=== PATIENT | male | born 1995 | race Caucasian/White ===

== ENCOUNTER 2017-12-22 09:45 | Inpatient (IN) | payer MEDICAID, OTHER ==
[~2017-12-22] VITALS: Ht 172.7 cm; Wt 65.1 kg
[2017-12-22] MEDS: SODIUM CHLORIDE 0.9% 1,000 ML IV SCH ×2 (13:20→22:08)
[2017-12-22] MEDS: NICOTINE 7 MG/24 HR PATCH.TD24 TD SCH (13:24)
[2017-12-22 13:25] VITALS: BP 136/81
[2017-12-22] MEDS ORDERED: ENALAPRILAT 1.25 MG/ML, 2ML IVPush PRN (13:30)
[2017-12-22] MEDS ORDERED: BISACODYL 10 MG SUPP PR PRN (13:30)
[2017-12-22] MEDS ORDERED: ONDANSETRON 2MG/ML, 2ML IVPush PRN (13:30)
[2017-12-22] MEDS ORDERED: LABETALOL 5MG/ML, 20ML IVPush PRN (13:30)
[2017-12-22] MEDS ORDERED: DOCUSATE 100 MG CAPSULE PO PRN (13:30)
[2017-12-22 13:46] LABS: BASOPHILS # (AUTO) 0.03 x10^3/uL (0-0.1); BASOPHILS % (AUTO) 0 % (0-1); EOSINOPHILS # (AUTO) 0.26 x10^3/uL (0-0.4); EOSINOPHILS % (AUTO) 2 % (1-7); LYMPHOCYTES # (AUTO) 1.39 x10^3/uL (1-3.4); LYMPHOCYTES % (AUTO) 11 % (22-44); MD NO; MEAN CORPUSCULAR HEMOGLOBIN 32.3 pg (27.5-34.5); MEAN CORPUSCULAR HGB CONC 34.3 g/dL (33.2-36.2); MEAN CORPUSCULAR VOLUME 94.2 fL (81-97); MONOCYTES # (AUTO) 0.77 x10^3/uL (0.2-0.8); MONOCYTES % (AUTO) 6 % (2-9); NEUTROPHILS # (AUTO) 10.46 x10^3/uL (1.8-6.8); NEUTROPHILS % (AUTO) 81 % (42-75); PLATELET COUNT 211 x10^3/uL (130-400); RED BLOOD COUNT 4.69 x10^6/uL (4.38-5.82); RED CELL DISTRIBUTION WIDTH 13.6 % (9.4-14.8)
[2017-12-22 13:56] LABS: ALANINE AMINOTRANSFERASE 20 U/L (12-78); ANION GAP 9 mmol/L (5-15); CALCIUM 8.7 mg/dL (8.5-10.1); CHLORIDE 110 mmol/L (98-107); CREATININE 0.81 mg/dL (0.7-1.3)
[2017-12-22 13:58] LABS: ALKALINE PHOSPHATASE 84 U/L (45-117); BILIRUBIN,TOTAL 0.7 mg/dL (0.2-1.0); TOTAL PROTEIN 7.3 g/dL (6.4-8.2)
[2017-12-22 15:03] VITALS: BP 136/81
[2017-12-22] MEDS: KETOROLAC 30 MG/1 ML IV PRN ×2 (15:50→22:05)
[2017-12-22] MEDS: morphine SULFATE 10 MG/ML, 1ML IVPush PRN (20:17)
[2017-12-22 21:00] VITALS: BP 127/78
[2017-12-23 01:32] VITALS: BP 130/75
[2017-12-23] MEDS: KETOROLAC 30 MG/1 ML IV PRN (04:39)
[2017-12-23 05:18] LABS: BASOPHILS # (AUTO) 0.05 x10^3/uL (0-0.1); BASOPHILS % (AUTO) 0 % (0-1); EOSINOPHILS # (AUTO) 0.68 x10^3/uL (0-0.4); EOSINOPHILS % (AUTO) 6 % (1-7); LYMPHOCYTES # (AUTO) 1.92 x10^3/uL (1-3.4); LYMPHOCYTES % (AUTO) 17 % (22-44); MD NO; MEAN CORPUSCULAR HEMOGLOBIN 32.1 pg (27.5-34.5); MEAN CORPUSCULAR HGB CONC 34.1 g/dL (33.2-36.2); MEAN CORPUSCULAR VOLUME 94.1 fL (81-97); MEAN PLATELET VOLUME 10.5 fL (7.4-10.4); MONOCYTES # (AUTO) 1.03 x10^3/uL (0.2-0.8); MONOCYTES % (AUTO) 9 % (2-9); NEUTROPHILS # (AUTO) 7.77 x10^3/uL (1.8-6.8); NEUTROPHILS % (AUTO) 68 % (42-75); PLATELET COUNT 182 x10^3/uL (130-400); RED BLOOD COUNT 4.36 x10^6/uL (4.38-5.82); RED CELL DISTRIBUTION WIDTH 13.4 % (9.4-14.8)
[2017-12-23 05:32] LABS: CHLORIDE 111 mmol/L (98-107)
[2017-12-23 05:40] LABS: ALANINE AMINOTRANSFERASE 17 U/L (12-78); ALBUMIN 3.2 g/dL (3.4-5.0); ALKALINE PHOSPHATASE 75 U/L (45-117); ANION GAP 8 mmol/L (5-15); BILIRUBIN,TOTAL 0.7 mg/dL (0.2-1.0); CALCIUM 8.8 mg/dL (8.5-10.1); CREATININE 0.83 mg/dL (0.7-1.3); TOTAL PROTEIN 6.3 g/dL (6.4-8.2)
[2017-12-23 06:37] VITALS: BP 132/87
[2017-12-23] MEDS: morphine SULFATE 10 MG/ML, 1ML IVPush PRN (07:31)
[2017-12-23] MEDS: SODIUM CHLORIDE 0.9% 1,000 ML IV SCH ×2 (07:32→23:45)
[2017-12-23] MEDS: SENNA/DOCUSATE TABLET PO SCH (08:27)
[2017-12-23] MEDS ORDERED: OXYMETAZOLINE NASAL SPRAY 0.05%, 15ML ONE (11:13)
[2017-12-23] MEDS ORDERED: BALANCED SALT OPHTH IRRIG SOLN 18ML ONE (11:13)
[2017-12-23] MEDS ORDERED: LIDOCAINE 1%-EPI 1:100K, 30ML ONE (11:13)
[2017-12-23] MEDS ORDERED: NEO/BACI/POLY/HC OINT 15GM ONE (12:11)
[2017-12-23] MEDS ORDERED: CHLORHEXIDINE 15 ML UDC ONE (12:11)
[2017-12-23] MEDS ORDERED: CEFTRIAXONE PMX 1GM/50ML 50 ML IV SCH (13:00)
[2017-12-23] MEDS ORDERED: MIDAZOLAM 1 MG/ML, 2ML ONE (13:04)
[2017-12-23] MEDS ORDERED: FENTANYL PF 250 MCG/5ML ONE (13:04)
[2017-12-23] MEDS ORDERED: SUCCINYLCHOLINE 20 MG/ML, 10ML ONE (13:05)
[2017-12-23] MEDS ORDERED: ROCURONIUM 10 MG/ML,10ML ONE (13:05)
[2017-12-23] MEDS ORDERED: DEXAMETHASONE 4 MG/ML, 5ML ONE (13:05)
[2017-12-23] MEDS ORDERED: PROPOFOL 10 MG/ML, 20ML ONE (13:05)
[2017-12-23] MEDS ORDERED: CEFAZOLIN 1,000 MG ONE (13:05)
[2017-12-23] MEDS ORDERED: MEPERIDINE/PF 25MG/0.5ML IVPush PRN (14:00)
[2017-12-23] MEDS ORDERED: ONDANSETRON 2MG/ML, 2ML IV PRN (14:00)
[2017-12-23] MEDS ORDERED: HALOPERIDOL 5 MG/ML IV PRN (14:00)
[2017-12-23] MEDS ORDERED: LORazepam 2 MG/ML, 1ML IVPush PRN (14:00)
[2017-12-23] MEDS ORDERED: ONDANSETRON ODT 8 MG PO PRN (14:00)
[2017-12-23] MEDS ORDERED: ALBUTEROL SULFATE 2.5 MG/3 ML NPPB PRN (14:00)
[2017-12-23] MEDS ORDERED: hydrALAzine 20 MG/ML, 1ML IV PRN (14:00)
[2017-12-23] MEDS ORDERED: LABETALOL 5MG/ML, 20ML IV PRN (14:00)
[2017-12-23] MEDS ORDERED: MIDAZOLAM 1 MG/ML, 2ML IV PRN (14:00)
[2017-12-23] MEDS ORDERED: MORPHINE SULFATE 4 MG/ML, 1ML IVPush PRN (14:00)
[2017-12-23] MEDS ORDERED: PROMETHAZINE 12.5 MG SUPP PR PRN (14:00)
[2017-12-23] MEDS ORDERED: EPHEDRINE 50 MG/ML, 1ML IVPush PRN (14:00)
[2017-12-23] MEDS ORDERED: PROMETHAZINE 25 MG/ML, 1ML IV PRN (14:00)
[2017-12-23] MEDS ORDERED: KETOROLAC 30 MG/1 ML ONE (14:36)
[2017-12-23] MEDS ORDERED: ONDANSETRON 2MG/ML, 2ML ONE (14:36)
[2017-12-23] MEDS ORDERED: FENTANYL PF 100 MCG/2ML ONE (15:21)
[2017-12-23] MEDS: FENTANYL PF 100 MCG/2ML IV PRN ×2 (15:24→15:31)
[2017-12-23] MEDS ORDERED: OXYcodone 5 MG/5 ML ORAL.SOL UDC ONE ×2 (15:26→15:57)
[2017-12-23] MEDS: OXYcodone 5 MG/5 ML ORAL.SOL UDC PO PRN ×3 (15:27→22:13)
[2017-12-23] MEDS ORDERED: HYDROmorphone 2 MG/ML, 1ML ONE (15:35)
[2017-12-23] MEDS: HYDROmorphone 1 MG/ML, 1ML IV PRN ×3 (15:38→15:55)
[2017-12-23] MEDS ORDERED: HALOPERIDOL 5 MG/ML ONE (16:03)
[2017-12-23] MEDS ORDERED: MEPERIDINE/PF 50 MG/ML ONE (16:09)
[2017-12-23] MEDS: NICOTINE 7 MG/24 HR PATCH.TD24 TD SCH (17:20)
[2017-12-23 20:18] VITALS: BP 123/67
[2017-12-23 23:56] VITALS: BP 122/81
[2017-12-24] MEDS: OXYcodone 5 MG/5 ML ORAL.SOL UDC PO PRN (03:48)
[2017-12-24 03:57] VITALS: BP 122/71
[2017-12-24 07:00] VITALS: BP 127/74
[2017-12-24] MEDS: SENNA/DOCUSATE TABLET PO SCH (08:48)
[2017-12-24] MEDS: OXYcodone IR 5MG TABLET PO PRN ×2 (09:57→16:33)
[2017-12-24] MEDS: SODIUM CHLORIDE 0.9% 1,000 ML IV SCH (11:04)
[2017-12-24 12:42] VITALS: BP 121/78
[2017-12-24] MEDS ORDERED: OXYC5TAB3 PO (16:11)
[2017-12-24] MEDS ORDERED: AMOX1TAB64 PO (16:11)
[2017-12-24] MEDS: NICOTINE 7 MG/24 HR PATCH.TD24 TD SCH (16:33)
== END 2017-12-24 17:32 | disposition home or self-care (01) | DRG 132 ==
LOC: ED 12:31 → EDIP 12:34 → 4NOR 13:13
PROVIDERS: ADMIT Internal Medicine; ATTEND Family Medicine
PROC: 0NSV04Z Reposition Left Mandible with Internal Fixation Device, Open Approach (ICD-10-PCS; principal; 2017-12-23 13:00)
DX: S02.652A Fracture of angle of left mandible, initial encounter for closed fracture (principal); J45.909 Unspecified asthma, uncomplicated; F12.90 Cannabis use, unspecified, uncomplicated; F10.229 Alcohol dependence with intoxication, unspecified; W50.1XXA Accidental kick by another person, initial encounter; Y93.89 Activity, other specified; Y92.89 Other specified places as the place of occurrence of the external cause; Y99.8 Other external cause status; Z88.0 Allergy status to penicillin
CPT/HCPCS: 36415; 70100; 70486; 80053; 83735; 84100; 85025; C1713; G0378; J0690; J0696; J1100; J1170; J1885; J2175; J2250; J2405; J2704; J3010; J3490; J0330; J1630; J2270; J7030